=== PATIENT | female | born 1980 | race Caucasian/White ===

== ENCOUNTER 2017-04-24 10:24 | Outpatient (CLI) | payer BC | END 2017-04-24 19:57 | disposition home or self-care (01) | LOC: SMA 10:24 | PROVIDERS: ATTEND Surgery | DX: Z12.31 Encounter for screening mammogram for malignant neoplasm of breast (principal) | CPT/HCPCS: G0202 ==

== ENCOUNTER 2017-12-08 10:47 | Outpatient (CLI) | payer BC | END 2017-12-08 20:22 | disposition home or self-care (01) | LOC: SUS 10:47 | DX: N60.12 Diffuse cystic mastopathy of left breast (principal); N60.11 Diffuse cystic mastopathy of right breast | CPT/HCPCS: 76641 ==

== ENCOUNTER 2018-06-11 09:43 | Outpatient (CLI) | payer BC | END 2018-06-11 19:14 | disposition home or self-care (01) | LOC: SMA 09:43 | DX: Z12.31 Encounter for screening mammogram for malignant neoplasm of breast (principal); R92.8 Other abnormal and inconclusive findings on diagnostic imaging of breast; N63.13 Unspecified lump in the right breast, lower outer quadrant; N63.22 Unspecified lump in the left breast, upper inner quadrant | CPT/HCPCS: 76641; 77067 ==